=== PATIENT | male | born 2000 | race African-American/Black ===

== ENCOUNTER 2021-05-18 17:14 | Emergency (ER) | payer OTHER, SELFPAY ==
--- NOTE | ~2021-05-18 | XR_ITS ---
EXAMINATION: XR CHEST CLINICAL INFORMATION: Cough COMPARISON: None TECHNIQUE: Frontal view of the chest was obtained. FINDINGS: No significant abnormality is noted involving the heart, lungs, mediastinum, bony thorax or soft tissues. XR/XR chest 1V IMPRESSION: Unremarkable examination.
[2021-05-18 18:24] VITALS: BP 128/68; PULSE 85; RESP 18; TEMP 37.2; O2SAT 96; BMI 27.1
--- NOTE | 2021-05-18 21:22 | ED.GENADULT ---
HPI - General Adult General Chief complaint: Upper Respiratory Symptoms Stated complaint: chest pain, hurts to breathe- sharp pain Time Seen by Provider: 05/18/21 18:20 Source: patient Mode of arrival: ambulatory Limitations: no limitations History of Present Illness HPI narrative: Patient otherwise healthy comes here for cough for last 2- 3 days with no fever no shortness of breath hasbody aches and chest discomfort when he coughs , has not received COVID vaccine, tested COVID-19 at home was negative Related Data Previous Rx's Medication Instructions Recorded amoxicillin 875 mg-potassium 1 tab PO BID #20 tab 05/18/21 clavulanate 125 mg tablet benzonatate 200 mg capsule 200 mg PO TID PRN #20 cap 05/18/21 Allergies Allergy/AdvReac Type Severity Reaction Status Date / Time seafood AdvReac Severe Anaphylaxis Verified 05/18/21 18:23 Review of Systems Review of Systems: Yes all other systems are reviewed and are negative PMFSH Social History Social History Advance Directives: No Advance Directives Information Provided: No Physical Exam ED Vital Signs: Vital Signs - 24 hr 05/18/21 18:24 Temperature 98.9 F Pulse Rate 85 Respiratory Rate 18 Blood Pressure 128/68 Pulse Oximetry 96 BMI result Body Mass Index 27.1 Appearance: Alert. Oriented X3. No acute distress. ENT: Pharynx normal. Oral Mucosa moist Neck: Normal inspection. Neck supple. CVS: Normal heart rate and rhythm. Pulses normal. Respiratory: No respiratory distress. Equal air entry bilateral, occasional rhonchi no rales Abdomen: Soft and nontender. Bowel sounds are present, Skin: Skin warm and dry. Normal skin color. Normal skin turgor. Extremities: No lower extremity edema. No calf tenderness Neuro: Oriented X 3. Medical Decision Making MDM Narrative Medical decision making narrative: Chest x-ray negative for infiltrate symptoms bronchitis we discharged patient home on Augmentin Lab Data Lab results reviewed: Yes I reviewed the patient's lab results. Labs: Lab Results 05/18/21 Range/Units 21:22 COVID-19 (RHONDA) Negative (Negative) COVID-19 Clin Com See Note Discharge Plan Discharge Clinical Impression: Bronchitis Patient Disposition: Home, Self-Care Instructions: Acute Bronchitis (ED) Additional Instructions: Taken albuterol inhaler as advised 2 puffs every 4-6 hour for increased cough and wheezing Antibiotic as advised Follow up with PCP not better Prescriptions: New benzonatate 200 mg capsule 200 mg PO TID PRN (Reason: cough) Qty: 20 0RF amoxicillin-pot clavulanate 875-125 mg tablet 1 tab PO BID Qty: 20 0RF Stand Alone Forms: Work/School Release Interventions: ED Discharge Assessment Last Done: 05/18/21 22:15 Discharge Date/Time: 05/18/21 22:17
[2021-05-18 21:44] LABS: COVID-19 Test Negative (Negative)
[2021-05-18] MEDS: Benzonatate 100 MG CAPSULE 200 MG PO (22:03)
[2021-05-18] MEDS: Amoxicillin/Potassium Clav 875 MG TABLET PO (22:03)
[2021-05-18] MEDS: Albuterol Sulfate 90 MCG 8 GM INHALER 2 PUFF INHALE (22:04)
--- NOTE | 2021-05-18 22:11 | PC.NURSE ---
Medicated per MAR. Awaiting XRay results.
== END 2021-05-18 22:17 | disposition home or self-care (01) ==
PROVIDERS: Emergency Provider Internal Medicine
DX: J40 Bronchitis, not specified as acute or chronic (principal); Z20.822 Contact with and (suspected) exposure to COVID-19
CPT/HCPCS: 71045; 87635; 99283; 99284

== ENCOUNTER 2022-02-28 08:08 | Emergency (ER) | payer MEDICAID, SELFPAY ==
[2022-02-28 08:16] VITALS: BP 122/76; PULSE 73; RESP 17; TEMP 36.6; O2SAT 95; BMI 25.8
--- OUTSIDE RECORDS SUMMARY | 2022-02-28 08:33 | XMS_ITS | Continuity of Care Document ---
:2000 Author Organization [facility] Address [address] [place] [id number] Care Team Providers Name Role Phone Not on Staff, PCP Primary Care Physician Unavailable Encounter [facility] Date(s): 08/21/21 - 08/24/[address] [id number] Encounter Diagnosis Displaced comminuted fracture of shaft of right tibia, initial encounter for open fracture type IIIA, IIIB, or IIIC (Discharge Diagnosis) - 08/22/21 Discharge Disposition: A-D/C Home Attending Physician: Jan Cohen MD Admitting Physician: Jan Cohen MD Referring Physician: Not on Staff, Referring MD Allergies, Adverse Reactions, Alerts Substance Reaction Severity Status Seafood Tightness in throat Active Immunizations Given and Recorded Vaccine Date Status Refusal Reason tetanus/diphtheria/pertussis, acel(Tdap) 08/21/21 Given Medications acetaminophen 325 mg oral tablet 650 mg, By Mouth, Every 6 hours, # 100 tablet, Refills 0, Tot. Refills 0, Acute 09/07/21 12:16:00 EDT, 08/24/21 12:15:00 EDT, Route to Pharmacy Electronically, [facility], Partial fill upon patient request if the prescription is for a sc... Start Date: 08/24/21 Stop Date: 09/07/21 Status: OrderedAcetaminophen Tablet 650 mg, Tablet, By Mouth, 08/24/21 3:00:00 EDT Start Date: 08/24/21 Stop Date: 08/24/21 Status: Completedalbuterol inhaler (OP) PRN Wheezing/Shortness of Breath, q 4 hours prn, 0 Refills, Maintenance Start Date: 08/22/21 Status: Orderedaspirin 325 mg oral delayed release tablet 325 mg, 1, tablet, By Mouth, Daily, # 30 tablet, Refills 0, Tot. Refills 0, Maintenance, 08/24/21 12:15:00 EDT, Route to Pharmacy Electronically, [facility], Partial fill upon patient request if the prescription is for a schedule II opio... Start Date: 08/24/21 Stop Date: 09/23/21 Status: OrderedoxyCODONE 10 mg oral tablet See Instructions, PRN Pain , Moderate, 1/2-1 tablet By Mouth Every 4-6 hours as needed for moderate to severe pain, # 30 tablet, 0 Refills, Acute 08/31/21 12:17:00 EDT, 08/24/21 12:15:00 EDT, Tablet, [facility], Partial fill upon patient... Start Date: 08/24/21 Stop Date: 08/31/21 Status: OrderedOxyCODONE IR Tablet 10 mg, Tablet, By Mouth, Every 4 hours, PRN for Pain , Moderate, Routine, 08/21/21 20:18:00 EDT Start Date: 08/21/21 Stop Date: 08/24/21 Status: Discontinuedsenna 187 mg oral tablet 2 tablet = 17.2 mg, By Mouth, Daily at bedtime, PRN Constipation, # 20 tablet, 0 Refills, Acute 09/07/21 12:17:00 EDT, 08/24/21 12:15:00 EDT, Tablet, [facility], Partial fill upon patientrequest if the prescription is for a schedule II... Start Date: 08/24/21 Stop Date: 09/07/21 Status: Ordered Problem List Diagnosis Diagnosis Type Effective Dates [facility] Clinical Infor mant Status Service Displaced Discharge 08/22/21 Non-Specified comminuted Diagnosis fracture of shaft of right tibia, initial encounter for open fracture type IIIA, IIIB, or IIIC Procedures Procedure Date Related Diagnosis Body Site Status Debridement including removal of foreign 08/22/21 Completed material at the site of an open fracture and/or an open dislocation (eg, excisional debridement); skin and subcutaneous tissues1 Treatment of tibial shaft fracture (with 08/22/21 Completed or without fibular fracture) by intramedullary implant, with or without interlocking screws and/or cerclage2 1skin margins, irrigation of bone [id number] TriGen tibial nail 33 cm x 10 mm, lock x2 distally and x1 proximal Results Radiology Reports Exam Date Time Procedure Performing Provider Status 08/22/21 9:54 AM C-Arm > 1 Hour Libertad John; Ramu ([facility] ed) Notes:(C-Arm > 1 Hour) Reason For Exam: RT Tibial IM Rodding [id number] FT:1:15 4.424 mGyRESULT: C-Arm > 1 Hour Tibia/Fibula 2 Views Right, C-Arm > 1 Hour INDICATION: Reason: RT IM Tibial Rodding [id number] FT:1:15 4.424 mGy COMPARISONS: 08/21/2021 TECHNIQUE: Fluoroscopy support was provided. There was no radiologist in attendance. FLUOROSCOPY TIME: 1 minute 15 seconds EXPOSURE: 4.424 mGy TECHNOLOGIST TIME: 1 hour 10 minutes FINDINGS: 9 fluoroscopic images submitted from ORIF right tibia. Please refer to operative report for completefindings and procedural narrative IMPRESSION: See above. WSN: [id number] Ordering Physician: Jan Cohen MD Dictated By: Zay Ellis MD Dictated Date/Time: 08/22/21 6:39 pm Reviewed By: Zay Ellis MD Signed By: Zay Ellis MD Signed Date/Time: 08/22/21 6:39 pm Transcribed By: ESHA Transcribed Date/Time: 08/22/21 6:38 pm Exam Date Time Procedure Performing Provider Status 08/22/21 9:54 AM Tibia/Fibula 2 Views Right Felipe John [facility] (Verified) Notes:(Tibia/Fibula 2 Views Right) Reason For Exam: RT IM Tibial Rodding [id number] FT:1:15 4.424 mGyRESULT: Tibia/Fibula 2 Views Right Tibia/Fibula 2 Views Right, C-Arm > 1 Hour INDICATION: Reason: RT IM Tibial Rodding [id number] FT:1:15 4.424 mGy COMPARISONS: 08/21/2021 TECHNIQUE: Fluoroscopy support was provided. There was no radiologist in attendance. FLUOROSCOPY TIME: 1 minute 15 seconds EXPOSURE: 4.424 mGy TECHNOLOGIST TIME: 1 hour 10 minutes FINDINGS: 9 fluoroscopic images submitted from ORIF right tibia. Please refer to operative report for completefindings and procedural narrative IMPRESSION: See above. WSN: [id number] Ordering Physician: Jan Cohen MD Dictated By: Zay Ellis MD Dictated Date/Time: 08/22/21 6:39 pm Reviewed By: Zay Ellis MD Signed By: Zay Ellis MD Signed Date/Time: 08/22/21 6:39 pm Transcribed By: ESHA Transcribed Date/Time: 08/22/21 6:38 pm Exam Date Time Procedure Performing Provider Status 08/21/21 7:23 PM Tibia/Fibula 2 Views Right Sonia Julien; Ramu (Verified) Notes:(Tibia/Fibula 2 Views Right) Reason For Exam: with Pain;TraumaRESULT: Tibia/Fibula 2 Views Right Tibia/Fibula 2 Views Right Hx of Present Illness: Pt coming from softball game with injury to RLE after collision, open tibia fx noted by EMS. +CMS; Reason: Trauma; with Pain; Clinical Question(s): Fracture; post reduction splint COMPARISON: 08/21/2021 right tibia-fibula radiographs. FINDINGS: Improved alignment of distal tibial and fibular diaphysis fractures after closed reduction. There isapproximately 0.4 cm residual lateral and 0.9 cm posterior displacement of the distal fibular fragment, and 0.8 cm lateral and 0.7 cm posterior displacement of the distal tibial fragment. Visualized joint spaces are intact. IMPRESSION: Improved alignment of distal tibial and fibular diaphysis fractures after closed reduction, with mild residual displacement of both distal fragments. WSN: [id number] Ordering Physician: Albin Torres Dictated By: Rob Leong MD Dictated Date/Time: 08/21/21 7:36 pm Reviewed By: Rob Leong MD Signed By: Rob Leong MD Signed Date/Time: 08/21/21 7:36 pm Transcribed By: ESHA Transcribed Date/Time: 08/21/21 7:32 pm Exam Date Time Procedure Performing Provider Status 08/21/21 4:30 PM Tibia/Fibula 2 Views Right Zay Ren; Brenna fernandez (Verified) Notes:(Tibia/Fibula 2 Views Right) Reason For Exam: open tib fracture;Trauma RESULT: Tibia/Fibula 2 Views Right Tibia/Fibula 2 Views Right Hx of Present Illness: Pt coming from softball game with injury to RLE after collision, open tibia fx noted by EMS. +CMS; Reason: Trauma; open tib fracture; Clinical Question(s): Fracture COMPARISON: None. FINDINGS: Comminuted fracture of the distal tibial diaphysis, with lateral displacement of the distal fragmentby one shaft width, and proximal fragment protruding through the skin. Mild apex medial angulation of the fracture fragments. Comminuted fracture of the distal fibular diaphysis, with lateral displacement of the distal fragment by one shaft width. Mild apex medial angulation of the fracture fragments. IMPRESSION: Comminuted fractures of the distal tibial diaphysis, and distal fibular diaphysis, with lateral displacement of the fragments by one shaft width, and medial apex angulation. The proximal tibial fracture fragment extends through the skin. WSN: [id number] Ordering Physician: Albin Torres Dictated By: Rob Leong MD Dictated Date/Time: 08/21/21 5:25 pm Reviewed By: Rob Leong MD Signed By: Rob Leong MD Signed Date/Time: 08/21/21 5:25 pm Transcribed By: ESHA Transcribed Date/Time: 08/21/21 5:22 pm Vital Signs Most recent to oldest 1 2 3 [Reference Range]: Height 173 cm 173 cm 173 cm (08/24/21 9:33 AM) (08/24/21 4:20 AM) (08/24/21 12:05 AM) Weight 72.72 kg 72.72 kg 70.5 kg (08/22/21 6:39 AM) (08/21/21 11:21 PM) (08/21/21 3:51 PM) Oxygen Saturation [94-100 98 % 100 % 98 % %] (08/24/21 9:33 AM) (08/24/21 4:20 AM) (08/24/21 12:05 AM) Pulse Rate [55-90 bpm] 77 bpm 50 bpm 66 bpm (08/24/21 9:33 AM) *L* (08/24/21 12:05 A M) (08/24/21 4:20 AM) Body Mass Index 24.3 24.3 23.56 [18.5-24.99] (08/22/21 6:39 AM) (08/21/21 11:21 PM) (08/21/21 3:51 PM) Blood Pressure 140/77 mm Hg 136/60 mm Hg 132/84 mm Hg [90-138/55-84 mm Hg] *H* (08/24/21 4:20 AM) (08/24/21 12 :05 AM) (08/24/21 9:33 AM) Respiratory Rate [16-30 18 br/min 18 br/min 18 br/mi n br/min] (08/24/21 9:33 AM) (08/24/21 4:48 AM) (08/24/21 4:47 A M) Temperature [96.8-100.4 99.1 DegF 99.1 DegF 99.4 Deg F DegF] (08/24/21 9:33 AM) (08/24/21 4:20 AM) (08/24/21 12:05 AM) Liters per Minute 1 L/min 3 L/min 3 L/min (08/22/21 11:09 AM) (08/22/21 10:56 AM) (08/22/21 10:4 9 AM) Mode of Delivery (Oxygen) Room air Room air Room a ir (08/24/21 9:33 AM) (08/24/21 4:20 AM) (08/24/21 12:05 AM) Blood pressure sites Arm, right Arm, right Arm, right (08/24/21 9:33 AM) (08/24/21 4:20 AM) (08/24/21 12:05 AM) Temperature Route Oral Oral Oral (08/24/21 9:33 AM) (08/24/21 4:20 AM) (08/24/21 12:05 AM) Dry Weight 72.72 kg 70.5 kg 70.5 kg (08/21/21 11:21 PM) (08/21/21 3:51 PM) (08/21/21 3:38 PM) Weight Obtained Via Patient/family stated Patient/family stated (08/21/21 11:21 PM) (08/21/21 3:38 PM) Dry Weight Obtained Via Patient/family stated Patient/family sta keegan (08/21/21 11:21 PM) (08/21/21 3:38 PM)
--- NOTE | 2022-02-28 08:52 | ED_ITS ---
HPI - Male Genitourinary General Chief complaint: Urogenital-Male Stated complaint: ? STD Time Seen by Provider: 02/28/22 08:28 Source: patient Mode of arrival: ambulatory History of Present Illness HPI Narrative: 21-year-old male with no significant past medical history presenting to ED requesting STI testing. Patient reports new sexual partner. Denies any symptoms at present including penile lesions/discharge, bleeding, dysuria, abdominal pain, flank pain MD Complaint: possible STD exposure Related Data Previous Rx's Medication Instructions Recorded amoxicillin 875 mg-potassium 1 tab PO BID #20 tabs 05/18/21 clavulanate 125 mg tablet benzonatate 200 mg capsule 200 mg PO TID PRN cough #20 caps 05/18/21 Allergies Allergy/AdvReac Type Severity Reaction Status Date / Time seafood AdvReac Severe Anaphylaxis Verified 05/18/21 18:23 Review of Systems Review of Systems: Constitutional: No Fever, No Chills ENT/Mouth: No Ear Pain, No Nasal Congestion, No sore throat, No Rhinorrhea, No Swallowing Difficulty Cardiovascular: No Chest Pain, No SOB Respiratory: No Cough, No Sputum, No Wheezing Gastrointestinal: No Nausea, No Vomiting, No Diarrhea, No Constipation, No Abdominal pain Genitourinary: No penile lesions, No discharge, No Dysuria, No Urinary Frequency, No Hematuria, No Urinary Incontinence/retention, No Urgency, No Flank Pain Musculoskeletal: No joint pain, No Myalgias, No Joint Swelling Skin: No Skin Lesions, No rash Neuro: No Weakness Yes all other systems are reviewed and are negative Constitutional: Constitutional: Reports as per [facility] Past Medical History Attestation statement: The following information was validated with the patient. Social History Social History Advance Directives: No Physical Exam Vital Signs: Vital Signs: Last Vital Signs Temp 98 F 02/28/22 08:16 Pulse 73 02/28/22 08:16 Resp 17 02/28/22 08:16 BP 122/76 02/28/22 08:16 Pulse Ox 95 02/28/22 08:16 O2 Del Method 02/28/22 08:16 BMI result Body Mass Index 25.8 Const: General: cooperative, healthy appearing and no acute distress Orientation/consciousness: patient oriented x3 Limitations: no limitations HEENT: Head: Yes normal to inspection and Yes atraumatic Ears: hearing grossly normal bilaterally General nose exam: Normal external nose present Face and sinus: Yes normal facial exam Eyes: General: appearance normal, both eyes and all related structures EOM: EOMs intact bilaterally Neck: Neck: Yes normal visual inspection and Yes no meningeal signs Resp: Effort & Inspection: normal respiratory effort and no respiratory distress Cardio: Rate: regular rate Heart sounds: S1 normal heart sound present and S2 normal heart sound present : Other: deferred Skin: Rashes: no rashes Wounds: no wounds Neuro: General: patient oriented x3, tone normal and no meningeal signs Gait exam (Neuro): Normal gait present Extrem: General: Yes normal to inspection Medical Decision Making Medical Decision Making [facility] Narrative: 21-year-old male with no significant past medical history presenting to ED requesting STI testing. Patient reports new sexual partner. On exam vital signs stable, NAD, nontoxic-appearing. Patient denies symptoms at present Plan: STI testing. Patient would like to wait until cultures result for empiric treatment Differential Diagnosis Differential Diagnoses: The differential diagnosis associated with the presentation includes Admission/Observation Consideration of admission/observation: Escalation of care including admission/observation considered Lab Data [facility] Lab Attestation statement: I reviewed the patient's lab results. Discharge Plan Discharge Clinical Impression: STI (sexually transmitted infection) Patient Disposition: Elopement Instructions: Sexually Transmitted Diseases (ED), Safe Sex Practices (ED) Additional Instructions: You were tested for gonorrhea and chlamydia today The results will be back in 2-3 days, we will call you with positive results only Please avoid any sexual Follow-up with [facility] for further STI testing Prescriptions: No Action benzonatate 200 mg capsule 200 mg PO TID PRN (Reason: cough) Qty: 20 0RF amoxicillin-pot clavulanate 875-125 mg tablet 1 tab PO BID Qty: 20 0RF Referrals: [facility] [Provider Group] [facility] [Provider Group]
[2022-02-28 09:25] LABS: Appearance Urine Clear; Color Urine Yellow; Glucose Urine UA Negative (Negative); Leukocyte Esterase Urine Negative (Negative); Nitrite Urine Negative (Negative); PH 5.5 (5.0-9.0); Specific Gravity - Urine 1.025 (1.005-1.025); Urine Blood Negative (Negative); Urine Ketones Negative (Negative); Urine Protein Negative (Neg-Trace)
[2022-02-28 18:21] LABS: CT PCR NOT DETECTED (Not Detect.); NG PCR NOT DETECTED (Not Detect.)
== END 2022-02-28 09:14 | disposition left against medical advice (07) ==
PROVIDERS: Physician Assistant; Emergency Provider Emergency Medicine
DX: Z20.2 Contact with and (suspected) exposure to infections with a predominantly sexual mode of transmission (principal); Z79.899 Other long term (current) drug therapy
CPT/HCPCS: 81003; 87491; 87591; 99283